=== PATIENT | female | born 1975 | race Native Hawaiian/Other Pacific Islander ===

== ENCOUNTER 2025-08-20 15:48 | Outpatient (AMB) | payer OTHER, SELFPAY ==
--- NOTE | 2025-08-20 15:51 | MHC.PC.OV ---
Vital Signs 08/20/25 15:55 Height 5 ft 2.99 in Weight 177 lb 8 oz BMI 31.4 BP 129/77 Blood Pressure Location Rt brachial Position Sitting Respiration 16 Pulse 101 H Pulse Source Pulse Oximeter Temp 97.9 F Temp Source Oral Pulse Oximetry (%) 98 Oxygen Delivery Method Room Air Intake Visit Reasons: HEALTH AND WELLNESS ADVISOR Low potassium Insole And Heel Stiffener Required: No Accompanied by: Self / Same As Patient Allergies sulfamethoxazole (From Bactrim) Allergy (Mild, Verified 08/20/25 15:57) breathing problem trimethoprim (From Bactrim) Allergy (Mild, Verified 08/20/25 15:57) breathing problem Tobacco use date assessed: 08/20/25 Dental Screening Dental Screen Date: 08/20/25 Did you have a dental visit in the last 12 months?: Yes Did you have a dental problem in the last 6 months where you did not have access to dental care?: No Was dental information given to patient?: Patient has dentist HPI HPI Comments History of Present Illness Details History of Present Illness The patient is a 50-year-old female presenting with concerns about a possible calf muscle spasm, and establish care Sleep apnea: - The patient reports waking up tired and experiencing headaches in the morning, suggesting possible sleep apnea. - A home sleep study has been recommended to evaluate for sleep apnea. Electrolyte imbalance: - The patient experiences cramps and abdominal tenderness, which may be related to an electrolyte imbalance. - Laboratory tests including sodium, potassium, magnesium, and calcium levels have been ordered to investigate the cause. Review of Systems - General: Reports fatigue and waking up tired. Denies smoking and drug use. - Neurological: Reports morning headaches. - Gastrointestinal: Reports abdominal tenderness. - Musculoskeletal: Reports cramps. 10-point ROS reviewed and negative except as noted in HPI Past Medical History - Menopause: Cessation of menstruation reported. Health Maintenance - Sleep study: Home sleep study recommended to evaluate for sleep apnea. - Laboratory tests: Comprehensive metabolic panel, thyroid function tests, and electrolyte levels ordered. Physical Exam General: Well-appearing, in no acute distress. Vital signs: Within normal limits. HEENT: Normocephalic, atraumatic. PERRLA, EOMI. Conjunctiva clear, sclera anicteric. Oropharynx clear, mucous membranes moist. TMs intact bilaterally. Neck: Supple, no lymphadenopathy, no thyromegaly, no JVD or carotid bruits. Cardiovascular: RRR, normal S1/S2, no murmurs, rubs, or gallops. Peripheral pulses 2+ and symmetric. No edema. Respiratory: Lungs clear to auscultation bilaterally, no wheezes, rales, or rhonchi. Normal effort. Abdomen: Soft, tender to palpation. Normoactive bowel sounds. No hepatosplenomegaly, no masses. MSK: Full range of motion, no joint swelling or deformity. Normal gait. Skin: Warm, dry, intact. No rashes, lesions, or pallor. Neuro: Alert and oriented x3. Cranial nerves II-XII intact. Strength 5/5 throughout. Sensation intact. Reflexes 2+ symmetric. Normal coordination and gait. Psych: Appropriate mood and affect. Normal judgment and insight. Plan 1. Sleep Apnea - A home sleep study has been ordered to assess for sleep apnea. 2. Electrolyte Imbalance - Laboratory tests including sodium, potassium, magnesium, and calcium levels have been ordered to investigate the cause of cramps and abdominal tenderness. Discussion Notes During the visit, I discussed the potential for sleep apnea with the patient and recommended a home sleep study to confirm the diagnosis. We also talked about the possibility of an electrolyte imbalance causing her cramps and abdominal tenderness, and I ordered comprehensive laboratory tests to investigate further. The patient was informed about the importance of these tests and the need for follow-up to discuss the results and any necessary interventions. Patient was informed and verbally consented to the use of an ambient scribe for clinic note documentation during this visit. Patient Instructions - Schedule and complete the home sleep study as soon as possible. - Follow up with the clinic in two weeks to review lab results and discuss further management. - Maintain a balanced diet and stay hydrated to help manage potential electrolyte imbalances. Total time spent caring for the patient today was 30 minutes. This includes time spent before the visit reviewing the chart, time spent documenting, and time spent reviewing laboratory results, diagnostic imaging, medications, performing a medically necessary evaluation, counseling on diagnoses, care coordination, ordering appropriate tests. [facility] Family History (Updated 08/20/25 @ 15:59 by Naty Shell MA) Father No problems noted. Mother High blood pressure Diabetes Arthritis Polymyalgia Social History (Updated 08/20/25 @ 15:59 by Naty Shell MA) Housing: House Alcohol intake: current Alcohol intake frequency: holidays/special occasions only Patient Tobacco Use Status: Never used Tobacco service: No Current occupational status: employed Cognitive needs: No Hearing needs: No Vision needs: Yes (rx glasses) Questionnaire PHQ-9 Over the last 2 weeks, how often have you been bothered by any of the following problems? 1. Little interest or pleasure in doing things: not at all 2. Feeling down, depressed, or hopeless: not at all 3. Trouble falling or staying asleep, or sleeping too much: several days 4. Feeling tired or having little energy: several days 5. Poor appetite or overeating: not at all 6. Feeling bad about yourself - or that you are a failure or have let yourself or your family down: not at all 7. Trouble concentrating on things, such as reading the newspaper or watching television: not at all 8. Moving or speaking so slowly that other people could have noticed. Or the opposite - being so fidgety or restless that you have been moving around a lot more than usual: not at all 9. Thoughts that you would be better off or of hurting yourself in some way: not at all Total score: 2 Source: Developed by Drs. Agustin Alvarenga, Dianna Garvin, Hunter Knight and colleagues, with an educational ludy from [facility]. Thrive Questionnaire Date Thrive assessed: 08/20/25 I am a: Patient What is your living situation today?: I have a steady place to live Within the past 12 months, did the food you bought not last and you didn't have the money to get more?: Often true Within the past 12 months, did you worry whether your food would run out before you got money to buy more?: Never true Do you have trouble paying for medicines?: No Do you have trouble getting transportation to medical appointments?: No Do you have trouble paying your heating and electricity bill?: No Do you have trouble taking care of your child, family member or friend?: No Are you currently unemployed and looking for a job?: No Are you interested in more education?: No Please select the resources that you would like help with: None Currently or been in a relationship where the following occur: No concerns reported THRIVE Score: 1 AUDIT C Alcohol Use Questionnaire (AUDIT-C) 1. How often do you have a drink containing alcohol?: Monthly or less 2. How many drinks containing alcohol do you have on a typical day when you are drinking?: 1 or 2 3. How often do you have six or more drinks on one occasion?: Never Total Score: 1 MELVI-7 AMB Questionnaire MELVI-7 Date MELVI - 7 assessed: 08/20/25 Feeling nervous, anxious, or on edge: 0 = Not at all Not being able to stop or control worryin = More than half the days Worrying too much about different things: 2 = More than half the days Trouble relaxin = More than half the days Being so restless that it is hard to sit still: 1 = Several days Becoming easily annoyed or irritable: 0 = Not at all Feeling afraid as if something awful might happen: 0 = Not at all Total MELVI-7 score (0-4 normal; 5-9 mild; 10-14 moderate; 15-21 severe): 7 Source: Developed by Drs. Agustin Alvarenga, Dianna Garvin, Hunter Knight and colleagues, with an educational ludy from [facility]. Physical exam (Primary Care) Vital Signs: Last Vital Signs Resp 16 08/20/25 15:55 BMI result Body Mass Index 31.4 Tobacco/Smoking Status: Tobacco use Status Tobacco use date assessed 08/20/25 08/20/25 15:53 Patient Tobacco Use Status Never used Tobacco 08/20/25 15:59 PHQ-9: PHQ-9 Score PHQ-9: Total score 2 08/20/25 15:53 Thrive Assessment: Date of Thrive Assessment Date Thrive assessed 08/20/25 08/20/25 15:53 Currently or been in a relationship where the following occur: No concerns reported Coding Level of Care Code New Pt Level 4 (36257) Diagnoses Class 1 obesity E66.811 Assessment & Plan Assessment & Plan (1) Class 1 obesity: Code(s): E66.811 - Obesity, class 1 Plan Orders: Orders HIV Ab/Ag Today Z13.9 - Encounter for screening, unspecified Lipid Panel Today Z13.9 - Encounter for screening, unspecified UA CC w/rflx Micro + Cult Today Z13.9 - Encounter for screening, unspecified Chlamydia Species Ab Panel Today Z13.9 - Encounter for screening, unspecified CT NG by PCR Urine Today Z13.9 - Encounter for screening, unspecified Syphilis Screen Today Z13.9 - Encounter for screening, unspecified Complete Blood Count Auto Diff Today Z13.9 - Encounter for screening, unspecified Comprehensive Met. Panel Today Z13.9 - Encounter for screening, unspecified Hemoglobin A1c Today Z13.9 - Encounter for screening, unspecified Hepatitis B Surface Antibody Today Z13.9 - Encounter for screening, unspecified Hepatitis B Surface Antigen Today Z13.9 - Encounter for screening, unspecified Hepatitis C Antibody Today Z13.9 - Encounter for screening, unspecified Magnesium Today Z13.9 - Encounter for screening, unspecified Vitamin B12 and Folate Today Z13.9 - Encounter for screening, unspecified Vitamin D 1,25 dihydroxy Today Z13.9 - Encounter for screening, unspecified TSH reflex Free T4 Today Z13.9 - Encounter for screening, unspecified RT home sleep study Today G47.10 - Hypersomnia, unspecified, R51.9 - Headache, unspecified, R53.83 - Other fatigue Medications: New carbamide peroxide 6.5% (Debrox) 5 drps otic (ears) Q12H 15 mL 0RF 4 days
[2025-08-20 15:55] VITALS: BP 129/77; PULSE 101; RESP 16; TEMP 36.6; O2SAT 98; BMI 31.4
--- OUTSIDE RECORDS SUMMARY | 2025-08-20 18:07 | XMS_ITS | Clinical Summary ---
Author Organization [facility] it Address [address] [place] [address] Care Team Providers Care Senior Financial Accountant Name Role Phone Prabhakar Friend MD Primary Care Provider Un available Surgical History Surgery Date Site/Laterality Comments TUBAL LIGATION PROCEDURE: HISTORICAL TUBAL LIGATION TONSILLECTOMY PROCEDURE: HISTORICAL TONSILLECTOMY ESOPHAGOGASTRODUODENOSCOPY 12/16/2012 PROCEDURE: NC ESOPHAGOGASTRODUODENOSCOPY TRANSORAL DIAGNOSTIC; COMMENT: small HH; no esophagitis on PPI rx. BREAST REDUCTION 11/15/2013 PROCEDURE: NC BREAST REDUCTION; COMMENT: lift BELT ABDOMINOPLASTY 11/15/2015 PROCEDURE: HISTORICAL TUMMY TUCK ESOPHAGOGASTRODUODENOSCOPY 12/01/2022 PROCEDURE: NC EGD TRANSORAL BIOPSY SINGLE/MULTIPLE; COMMENT: normal including biopsy Medical History Medical History Date Comments Lumbago 08/03/2007 DX:Lumbago Acute upper respiratory infe ctions of unspecified site 08/03/2007 DX:Acute upper respiratory infections of unspecified site Epicondylitis, lateral DX:Epicon dylitis, lateral GERD (gastroesophageal reflux disease) DX:GERD (gastroesophageal reflux disease) Gastroparesis 09/01/2023 DX:Gastroparesis Choking DX:Choking Dysphagia DX:Dysphagia Family History Medical History Relation Name Comments Breast cancer Aunt paternal Hyperlipidemia Father Hypertension Father Lymphoma Father Diabetes Grandparent Cataracts Maternal Grandfather Glaucoma Maternal Grandmother Hypertension Mother Stroke Mother Breast cancer Other 1 pat cousin Other: cancer of breast Other 2 patel rnal cousin Other: stomach cancer Paternal Grandfather Throat cancer Uncle 1 Esophageal cancer Uncle 2 Blindness Neg Hx Macular degeneration Neg Hx Strabismus Neg Hx Relation Name Status Comments Aunt paternal Alive Father Grandparent Maternal Grandfather Maternal Grandmother Mother Other 1 pat cousin Alive Other 2 Paternal Grandfather Uncle 1 Uncle 2 Alive Social History Tobacco Use Types Packs/Day Years Used Date Smoking Tobacco: Former Cigarettes Q uit: 11/15/2010 Smokeless Tobacco: Never Alcohol Use Standard Drinks/Week Comments Yes 0 (1 standard drink = 0.6 oz pur e alcohol) Comments Unknown Sex and Gender Information Value Date Recorded Sex Assigned at Not on file Legal Sex Female 9:25 AM EST Gender Identity Not on file Sexual Orientation Not on file Obstetrics History Last Filed Vital Signs Vital Sign Reading Time Taken Comments Blood Pressure 140/90 12/13/2023 9:27 AM EST Pulse 80 12/13/2023 9:27 AM EST Temperature - - Respiratory Rate - - Oxygen Saturation - - Inhaled Oxygen Concentration - - Weight 79.6 kg (175 lb 8 oz) 12/13/2023 9:27 AM EST Height 154.9 cm (5' 1 ) 12/13/2023 9:27 AM EST Body Mass Index 33.16 12/13/2023 9:27 AM EST Plan of Treatment Health Maintenance Due Date Last Done Comments Colorectal Cancer Screening: Colonoscopy 1973 Hepatitis B Vaccines (1 of 3 - 19+ 3-dose series) 01/23/1992 Cholesterol Screening (Lipid Panel) 10/24/2022 HIV Screening 10/24/2022 Hepatitis C Screening 10/24/2022 Lung Cancer Screening (Low Dose CT) 10/24/2022 Social Influencers of Health Screening 10/24/2022 Pneumococcal Vaccine: 50+ Years (1 of 1 - PCV) 2023 Zoster Vaccines (1 of 2) 2023 Depression Screening 11/15/2024 COVID-19 Vaccine (3 - 2024- season) 2025 02/27/2021, 02/06/2021 Influenza Vaccine (#1) 2025 Breast Cancer Screening 08/04/2025 08/04/20, 07/28/2022, 02/07/2019, Additional history exists Cervical Cancer Screening: HPV 08/22/2029 08/22/2024 DTaP,Tdap,and Td Vaccines (4 - Td or Tdap) 09/01/2033 09/01/2023, 07/06/2012, 07/01/2006 RSV Immunization Adult Patients (1 - 1-dose 75+ series) 01/23/2048 HIB Vaccines Aged Out No longer eligi ble based on patient's age to complete this topic HPV Vaccines Aged Out No longer eligi ble based on patient's age to complete this topic Hepatitis A Vaccines Aged Out No long er eligible based on patient's age to complete this topic IPV Vaccines Aged Out No longer eligi ble based on patient's age to complete this topic MMR Vaccines Aged Out No longer eligi ble based on patient's age to complete this topic Meningococcal ACWY Vaccine Aged Out N o longer eligible based on patient's age to complete this topic Meningococcal B Vaccine Aged Out No l onger eligible based on patient's age to complete this topic RSV Immunization Patients Under 20 months Aged Out No longer eligible based on patient's age to complete this topic Varicella Vaccines Aged Out No longer eligible based on patient's age to complete this topic Procedures Procedure Name Priority Date/Time Associated Diagnosis Comments SCREENING MAMMOGRAPHY BI 2-VIEW BREAST INC CAD Routine 08/04/2023 7:44 AM EDT Encounter for screening mammogram for malignant neoplasm of breast from Last 3 Months or Most Recently Relevant to Health Maintenance Results * SCREENING MAMMOGRAPHY BI 2-VIEW BREAST INC CAD (08/04/2023 7:44 AM EDT) Anatomical Region Laterality Modality Radiographic Sydnie ging 07/28/2022 8:26 AM EDT Narrative 08/04/2023 11:35 AM EDT This is a summary report. The complete report is available in the patient's medical record. If you cannot access the medical record, please contact the sending organization for a detailed fax or copy. Full field digital screening tomosynthesis mammography, reviewed with CAD and compared to previous. The breasts are composed of fatty and fibroglandular tissue. There is sequela of bilateral breast reduction mammoplasty. No suspicious mass, architectural distortion or suspicious calcifications are identified. IMPRESSION: : No mammographic evidence of malignancy. BI-RADS 2, benign findings.. 5 year breast cancer risk assessment N/A Lifetime breast cancer risk assessment N/A Breast cancer risk category Breast cancer risk not assessed Procedure Note Sabina Moffett MD - 12/21/2023 This is a summary report. The complete report is available in thepatient's medical record. If you cannot access the medical record, pleasecontact the sending organization for a detailed fax or copy. Full field digital screening tomosynthesis mammography, reviewed with CADani compared to previous. The breasts are composed of fatty andfibroglandular tissue. There is sequela of bilateral breast reductionmammoplasty. No suspicious mass, architectural distortion or suspiciouscalcifications are identified. IMPRESSION: : No mammographic evidence of malignancy. BI-RADS 2, benign findings.. 5 year breast cancer risk assessment N/A Lifetime breast cancer risk assessment N/A Breast cancer risk category Breast cancer risk not assessed us Prabhakar Friend MD IMG XR PROCEDURES Final R esult from Last 3 Months or Most Recently Relevant to Health Maintenance Care Teams Senior Financial Accountant Relationship Specialty Start Date End Date Prabhakar Friend MD PCP - General Internal Medicine 01/29/22
--- OUTSIDE RECORDS SUMMARY | 2025-08-20 18:07 | XMS_ITS | Clinical Summary ---
Author Organization [facility] Address [address] [place] [address] Phone Care Team Providers Care Bowling Pin Setters Installer Name Role Phone Pcp, Unknown Primary Care Provider Unavailabl e Allergies Active Allergy Reactions Criticality Noted Date Comments Sulfamethoxazole-Trimethoprim Anaphylaxis High 01/30 Medications oxyCODONE 5 MG immediate release tablet Take 1 tablet (5 mg total) by mouth every 4 (four) hours as needed. Can partial fill 12 tablet 05/22/2024 Active Social History Tobacco Use Types Packs/Day Years Used Date Smoking Tobacco: Never Assessed Education Answer Date Recorded Are you interested in more education? Not on devon e 05/23/2024 Are you concerned about learning? Not on file 05/23/2024 No 05/23/2024 No 05/23/2024 Digital Access Answer Date Recorded No 05/23/2024 No 05/23/2024 Reliable internet access at home? Not on file 05/23/2024 Device with a working camera? Not on file Intimate Partner Violence Answer Date R ecorded Are you denied basic needs s uch as food, clothing, or medical care? No 05/22/2024 In the past 12 months have y ou been in a relationship with a person who hurts, threatens, or tries to control you? No 05/22/2024 Are you denied basic needs s uch as food, clothing, or medical care? No 05/22/2024 In the past 12 months have y ou been in a relationship with a person who hurts, threatens, or tries to control you? No 05/22/2024 Comments Unknown Sex and Gender Information Value Date Recorded Sex Assigned at Female 05/22/2024 6:36 PM EDT Legal Sex Female 6:29 PM EDT Gender Identity Female 05/22/2024 6:36 PM EDT Sexual Orientation Straight 05/22/2024 6: 36 PM EDT Last Filed Vital Signs Vital Sign Reading Time Taken Comments Blood Pressure 126/73 05/22/2024 9:00 PM EDT Pulse 87 05/22/2024 9:00 PM EDT Temperature 36.3 C (97.3 F) 05/22/2024 9:00 PM EDT Respiratory Rate 16 05/22/2024 9:00 PM EDT Oxygen Saturation 99% 05/22/2024 9:00 PM EDT Inhaled Oxygen Concentration - - Weight 74.8 kg (165 lb) 05/22/2024 7:27 PM EDT Height 157.5 cm (5' 2 ) 05/22/2024 7:27 PM EDT Body Mass Index 30.18 05/22/2024 7:27 PM EDT Plan of Treatment Health Maintenance Due Date Last Done Comments Adult Td,Tdap Booster 1973 DEPRESSION SCREENING 1985 SMOKING Hx and SMOKELESS TOB ACCO SCREENING 1986 HEPATITIS C SCREENING 1991 HIV ONE-TIME SCREENING (18-6 5 YEARS) 1991 PAP SMEAR 1994 SCREENING FOR DIABETES 01/23/2008 MAMMOGRAM 2013 COLOGUARD 2018 COLONOSCOPY 2018 FIT TEST 2018 SIGMOIDOSCOPY 2018 VIRTUAL COLONOSCOPY 2018 PNEUMOCOCCAL VACCINES (50+ y ears) (1 of 1 - PCV) 2023 ZOSTER VACCINES (1 of 2) 2023 COLORECTAL CANCER SCREENING 01/31/2025 FOBT 01/31/2025 02/01/2024 INFLUENZA VACCINE (#1) 2025 COVID-19 VACCINE (1 - 2024-2 6 season) 2025 LIPID PANEL 01/31/2029 02/01/2024 RSV VACCINE (1 - 1-dose 75+ series) 01/23/2048 HEPATITIS A VACCINES Aged Out No long er eligible based on patient's age to complete this topic HIB VACCINES Aged Out No longer eligi ble based on patient's age to complete this topic MENINGOCOCCAL VACCINES (ACWY) Aged Out No longer eligible based on patient's age to complete this topic MENINGOCOCCAL VACCINES (B) Aged Out N o longer eligible based on patient's age to complete this topic Medical Devices Not on file Insurance [place] Member Subscriber Plan / Payer (Ef fective 2024-Present) Name:Hartley HebertApril Relation to Subscriber:Self Name:April Jean Payer ID:Not on file Group ID:Not on file Type:Medicaid Address: [address] [address] MEDICAID [facility] MEDICAID NON [place] Care Teams Bowling Pin Setters Installer Relationship Specialty Start Date End Date Pcp, Unknown PCP - General 05/22/24 Additional Source Comments The information contained in this document represents components of the legal health record. It is not the complete legal health record.[facility]
== END 2025-08-20 16:31 | disposition home or self-care (01) ==
LOC: HO.HMCFMS 15:49
PROVIDERS: PCP Student in an Organized Health Care Education/Training Program; Visit Provider Student in an Organized Health Care Education/Training Program
DX: E66.811 Obesity, class 1 (principal)

== ENCOUNTER 2025-08-21 11:38 | Outpatient (REF) | payer OTHER, SELFPAY ==
[2025-08-21 12:13] LABS: MANUAL DIFF FLAG NO
[2025-08-21 12:27] LABS: Hematocrit 46.6 % (37.0-47.0); Hemoglobin 15.8 g/dl (12.0-16.0); Imm Gran Abs Auto 0.02 X10*3/uL (0.00-0.03); Imm Gran Pct Auto 0.3 % (0.0-0.4); Lymphocytes Absolute Auto 2.3 X10*3/uL (1.2-4.9); Mean Corpuscular HGB Conc 33.9 g/dl (31.0-35.0); Mean Corpuscular Hemoglobin 29.1 pg (27.0-33.0); Mean Corpuscular Volume 85.8 fL (80.0-98.0); NRBC Abs Auto 0.000 X10*3/uL (0.0-0.012); NRBC Pct Auto 0.0 /100WBC (0.0-0.2); Platelet Count 328 X10*3/uL (160-400); Red Blood Count 5.43 X10*6/uL (4.20-5.50); White Blood Count 6.7 X10*3/uL (4.8-10.8)
[2025-08-21 13:01] LABS: Alanine Aminotransferase 35 U/L (0-31); Albumin Level 4.7 g/dL (3.5-5.0); Alkaline Phosphatase 115 U/L (39-117); Anion Gap 13 (12-20); Aspartate Amino Transferase 28 U/L (5-31); Blood Urea Nitrogen 13 mg/dL (9-16); Calcium 9.4 mg/dL (8.4-10.2); Carbon Dioxide 27 mmol/L (22-29); Chloride 104 mmol/L (96-108); Cholesterol 255 mg/dL (<200); Estimated Glomerular Filt Rate > 60; HDL Cholesterol 47 mg/dL (>40); Magnesium 2.3 mg/dL (1.6-2.6); Potassium 3.7 mmol/L (3.3-5.1); Sodium 140 mmol/L (135-145); Total Protein 8.6 g/dL (6.5-8.0); Triglycerides 337 mg/dL (<150)
[2025-08-21 13:13] LABS: HBS Num1 0.00 mIU/mL (0-7.99); HBsAGNum1 0.42 S/CO (0.00-0.99); HIV Num 1 0.06 S/CO (0.00-0.99); Hepatitis B Surface Antigen Negative (Negative); Syphilis Screen Nonreactive (Nonreactive); ~HepC Num1 0.17 S/CO (0.00-0.79); ~Hepatitis B Surface Antibody NONREACTIVE (Nonreactive); ~Hepatitis C Antibody Nonreactive (Nonreactive)
[2025-08-21 13:30] LABS: Folate 10.0 ng/mL (> or = 4.0)
[2025-08-21 13:37] LABS: Vitamin B12 317 pg/mL (200-900)
[2025-08-21 14:15] LABS: Appearance Urine Clear; Glucose Urine UA Negative (Negative); PH 7.5 (5.0-9.0); Specific Gravity - Urine 1.020 (1.005-1.025); UMIC TRIGGER UACC YES
--- OUTSIDE RECORDS SUMMARY | 2025-08-21 14:45 | XMS_ITS | Clinical Summary ---
Author Organization [facility] Address [address] [place] [address] Phone Care Team Providers Care Chlorinator Operator Name Role Phone Pcp, Unknown Primary Care [...] Devices Not on file [place] [facility] MEDICAID NON [place] Care Teams Chlorinator Operator Relationship Specialty Start Date End Date Pcp, Unknown PCP - General 05/22/24 Additional Source Comments The information contained in this document represents components of the legal health record. It is not the complete legal health record.[facility]
--- OUTSIDE RECORDS SUMMARY | 2025-08-21 14:45 | XMS_ITS | Clinical Summary ---
Author Organization [facility] it Address [address] [place] [address] Care Team Providers Care Machinist First Class Name Role Phone Prabhakar Friend MD Primary Care Provider Un available Surgical History Surgery Date Site/Laterality Comments TUBAL LIGATION PROCEDURE: HISTORICAL TUBAL LIGATION TONSILLECTOMY PROCEDURE: HISTORICAL TONSILLECTOMY ESOPHAGOGASTRODUODENOSCOPY 12/16/2012 PROCEDURE: DE ESOPHAGOGASTRODUODENOSCOPY TRANSORAL DIAGNOSTIC; COMMENT: small HH; no esophagitis on PPI rx. BREAST REDUCTION 11/15/2013 PROCEDURE: DE BREAST REDUCTION; COMMENT: lift BELT ABDOMINOPLASTY 11/15/2015 PROCEDURE: HISTORICAL TUMMY TUCK ESOPHAGOGASTRODUODENOSCOPY 12/01/2022 PROCEDURE: DE EGD TRANSORAL BIOPSY SINGLE/MULTIPLE; COMMENT: normal including [...] Recently Relevant to Health Maintenance Care Teams Machinist First Class Relationship Specialty Start Date End Date Prabhakar Friend MD PCP - General Internal Medicine 01/29/22
[2025-08-21 14:51] LABS: UACC Culture Trigger YES
[2025-08-21 16:11] LABS: CT PCR Urine NOT DETECTED (Not Detect.); NG PCR Urine NOT DETECTED (Not Detect.)
[2025-08-26 14:08] LABS: VITAMIN D (1,25 OH) D3 55 pg/mL; Vit D (1,25-Dihydroxy) Total 55 pg/mL (18-72); Vitamin D (1,25 OH) D2 <8 pg/mL
[2025-08-26 17:30] LABS: Chlamydia Trachomatis IgA <1:16 titer (<1:16)
== END 2025-08-21 11:39 | disposition home or self-care (01) ==
LOC: HO.LAB 11:38
PROVIDERS: Visit Provider Student in an Organized Health Care Education/Training Program
DX: Z13.9 Encounter for screening, unspecified (principal); Z01.84 Encounter for antibody response examination; Z13.29 Encounter for screening for other suspected endocrine disorder; Z13.1 Encounter for screening for diabetes mellitus
CPT/HCPCS: 80053; 80061; 81001; 82607; 82652; 82746; 83036; 83735; 84443; 85025; 86631; 86632; 86706; 86780; 86803; 87086; 87340; 87389; 87491; 87591

== ENCOUNTER 2025-09-03 15:58 | Outpatient (AMB) | payer OTHER, SELFPAY ==
--- NOTE | 2025-09-03 16:13 | MHC.PC.OV ---
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 Required: No Accompanied by: Self / Same As Patient Allergies sulfamethoxazole (From Bactrim) Allergy (Mild, Verified 08/20/25 15:57) breathing problem trimethoprim (From Bactrim) Allergy (Mild, Verified 08/20/25 15:57) breathing problem Tobacco use date assessed: 09/03/25 Dental Screening Dental Screen Date: 09/03/25 Did you have a dental visit in the last 12 months?: Yes Did you have a dental problem in the last 6 months where you did not have access to dental care?: No Was dental information given to patient?: Patient has dentist HPI HPI Comments History of Present Illness Details Consent Patient was informed and verbally consented to the use of an ambient scribe for clinic note documentation during this visi History of Present Illness The patient is a 50-year-old female presenting with follow-up for prediabetes, hyperlipidemia, and elevated liver enzymes, and management of pain issues. Prediabetes: The patient has been noted to have prediabetes, with a recorded A1c of 6.0 from recent labs indicating glucose intolerance. No symptoms or complications were reported by the patient during this follow-up. Hyperlipidemia: The patient reports elevated lipid levels with triglycerides of 337 mg/dL, cholesterol of 255 mg/dL, and LDL 141 mg/dL. She denies any significant changes in diet but mentions a familial tendency for elevated lipid levels. There were no immediate complications discussed. Elevated ALT: Mild elevation in ALT was identified at 35 U/L. There was no direct cause identified or discussed for this mild elevation during the visit. Tendinitis: The patient experiences tendinitis-related pain and refrains from using daily medication. She expresses a preference for lifestyle modifications and non-medicinal treatments for her condition. 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 Alternative therapies were discussed during the visit. 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 - On her feet for extended periods due to job function, leading to consideration of compression stockings - Reports a varied diet with a formal mention of cheese consumption Family History: - Potential familial hyperlipidemia suggested Diagnostic Results: - Labs: A1c is 6.0 (prediabetes), elevated triglycerides at 337 mg/dL, cholesterol at 255 mg/dL, and LDL at 141 mg/dL - Labs: ALT mildly elevated at 35 U/L - Labs: HDL, vitamin B12, vitamin D, folate within normal limits - Labs: Sodium, potassium, renal function, white blood cells, red blood cells, hemoglobin, hematocrit, platelets within normal limits - Tests: Negative for syphilis, HIV, hepatitis B and C Review of Systems - Musculoskeletal: Reports tendinitis pain - Neurological: Reports neuropathic pain; denies feeling comfortable using gabapentin during work hours. Reports previous use of gabapentin. 10-point ROS reviewed and negative except as noted in HPI Past Medical History - History of persistent tendinitis - Previous neuropathic pain management with gabapentin Health Maintenance - Recommendation to see a registered respiratory therapist for dietary guidance related to lipid control - Discussed fish oil introduction and benefits Physical Exam General: Well-appearing, in no acute distress. Vital signs: Within normal limits. HEENT: Normocephalic, atraumatic. PERRLA, EOMI. Conjunctiva clear, sclera anicteric. Oropharynx clear, mucous membranes moist. TMs intact bilaterally. Neck: Supple, no lymphadenopathy, no thyromegaly, no JVD or carotid bruits. Cardiovascular: RRR, normal S1/S2, no murmurs, rubs, or gallops. Peripheral pulses 2+ and symmetric. No edema. Respiratory: Lungs clear to auscultation bilaterally, no wheezes, rales, or rhonchi. Normal effort. Abdomen: Soft, non-tender, non-distended. Normoactive bowel sounds. No hepatosplenomegaly, no masses. MSK: Full range of motion, no joint swelling or deformity. Normal gait. Skin: Warm, dry, intact. No rashes, lesions, or pallor. Neuro: Alert and oriented x3. Cranial nerves II-XII intact. Strength 5/5 throughout. Sensation intact. Reflexes 2+ symmetric. Normal coordination and gait. Psych: Appropriate mood and affect. Normal judgment and insight. Plan 1. Prediabetes - Recommend lifestyle modifications and dietary changes, reducing carbohydrates and sweets. - Referral to a registered respiratory therapist for personalized planning. 2. Hyperlipidemia - Prescription of atorvastatin 10 mg to reduce LDL and overall cholesterol levels. - Addition of Rose-3 fish oil, 2 g in the morning and 2 g at night, to assist in lowering triglyceride levels. - Recommend follow-up in 3-6 months with lipid panel repeat. 3. Elevated Alt - No active intervention but to monitor LFTs in subsequent visits. 4. Tendinitis - Discussion of potential use of capsaicin topical cream for pain management. 5. Neuropathic Pain - Trial of alternative medications such as amtriptyline or duloxetine for pain management, considering their lower sedative profile compared to gabapentin. Discussion Notes I reviewed the patient's current health issues which include prediabetes, hyperlipidemia, and an elevated ALT level. We discussed lifestyle and dietary changes, specifically focusing on carbohydrate and sugar reduction to manage prediabetes. For hyperlipidemia, I detailed the option of starting on atorvastatin and omega-3 fish oil, explaining the benefits and necessity of reducing triglyceride and cholesterol levels. We also talked about following up on these labs in 3-6 months. For pain management linked to tendinitis and neuropathic pain, the alternatives such as capsaicin cream and medications like amitriptyline and duloxetine were discussed as preferable to gabapentin due to its sedative effects. A referral to a registered respiratory therapist was offered for personalized dietary management, and I provided instructions on seeking a home sleep study. Patient Instructions - Reduce carbohydrate and sugar intake; focus on a healthy diet - Consider consultation with a pipe roller - Take atorvastatin and omega-3 fish oil as prescribed for lipid management - Use acetaminophen or capsaicin cream for pain management - Schedule a follow-up visit in 3-6 months to reassess lab results - Follow up on scheduling a home sleep study Medical Decision Making The patient presented a complex profile with multiple interrelated issues. The focus was on managing her prediabetes and hyperlipidemia while ensuring that her liver enzymes are monitored for safety. The management of her pain was crucial, and alternative medications were considered to avoid the sedative effects of previous treatments. The decision to introduce a statin and omega-3 oils was based on the need for aggressive lowering of her lipid levels to prevent future cardiovascular risk. Education on lifestyle and dietary changes was emphasized for the management of her risk factors related to both metabolic syndrome components and to minimize any potential liver damage. Regular monitoring and reassessment were deemed necessary due to the chronic nature of her health issues. Total time spent caring for the patient today was 30 minutes. This includes time spent before the visit reviewing the chart, time spent documenting, and time spent reviewing laboratory results, diagnostic imaging, medications, performing a medically necessary evaluation, counseling on diagnoses, care coordination, ordering appropriate tests, ordering appropriate medications. [facility] Family History Father No problems noted. Mother High blood pressure Diabetes Arthritis Polymyalgia Social History Housing: House Alcohol intake: current Alcohol intake frequency: holidays/special occasions only Patient Tobacco Use Status: Never used Tobacco service: No Current occupational status: employed Cognitive needs: No Hearing needs: No Vision needs: Yes (rx glasses) Questionnaire Thrive Questionnaire Date Thrive assessed: 08/20/25 I am a: Patient What is your living situation today?: I have a steady place to live Within the past 12 months, did the food you bought not last and you didn't have the money to get more?: Often true Within the past 12 months, did you worry whether your food would run out before you got money to buy more?: Never true Do you have trouble paying for medicines?: No Do you have trouble getting transportation to medical appointments?: No Do you have trouble paying your heating and electricity bill?: No Do you have trouble taking care of your child, family member or friend?: No Are you currently unemployed and looking for a job?: No Are you interested in more education?: No Please select the resources that you would like help with: None Currently or been in a relationship where the following occur: No concerns reported THRIVE Score: 1 MELVI-7 AMB Questionnaire MELVI-7 Date MELVI - 7 assessed: 08/20/25 Source: Developed by Drs. Agustin Alvarenga, Dianna Garvin, Hunter Knight and colleagues, with an educational ludy from [employer]. Physical exam (Primary Care) Vital Signs: Last Vital Signs Temp 97.7 F 09/03/25 16:14 Pulse 87 09/03/25 16:14 Resp 16 09/03/25 16:14 BP 139/86 09/03/25 16:14 Pulse Ox 99 09/03/25 16:14 Oxygen Delivery Method Room Air 09/03/25 16:14 BMI result Body Mass Index 31.6 Tobacco/Smoking Status: Tobacco use Status Tobacco use date assessed 09/03/25 09/03/25 16:16 Patient Tobacco Use Status Never used Tobacco 09/03/25 16:14 Thrive Assessment: Date of Thrive Assessment Date Thrive assessed 08/20/25 09/03/25 16:14 Currently or been in a relationship where the following occur: No concerns reported Coding Level of Care Code Est Pt Level 4 (65977) Diagnoses Prediabetes R73.03 Hyperlipidemia E78.5 Elevated ALT measurement R74.01 Tendonitis M77.9 Neuropathic pain M79.2 GERD (gastroesophageal reflux disease) K21.9 Assessment & Plan Assessment & Plan (1) Prediabetes: Code(s): R73.03 - Prediabetes (2) Hyperlipidemia: Code(s): E78.5 - Hyperlipidemia, unspecified (3) Elevated ALT measurement: Code(s): R74.01 - Elevation of levels of liver transaminase levels (4) Tendonitis: Code(s): M77.9 - Enthesopathy, unspecified (5) Neuropathic pain: Code(s): M79.2 - Neuralgia and neuritis, unspecified (6) GERD (gastroesophageal reflux disease): Code(s): K21.9 - Gastro-esophageal reflux disease without esophagitis Plan Medications: New rosuvastatin 10 mg PO DAILY 90 tabs 0RF acetaminophen ER 650 mg PO Q12H 90 tabs 0RF capsaicin 0.035% do not wash area for at least 30 min after application 1 appl topical BID 100 grams 0RF icosapent ethyl 2 grams (2 x 1 gram) PO BID 360 caps 0RF omeprazole 10 mg PO DAILY 90 caps 0RF
[2025-09-03 16:14] VITALS: BP 139/86; PULSE 87; RESP 16; TEMP 36.5; O2SAT 99; BMI 31.6
--- OUTSIDE RECORDS SUMMARY | 2025-09-03 20:16 | XMS_ITS | Clinical Summary ---
Author Organization [facility] Address [address] [place] [address] Phone Care Team Providers Care Flight Data Technician Name Role Phone Pcp, Unknown Primary Care [...] Devices Not on file Insurance [place] [employer] [place] Care Teams Flight Data Technician Relationship Specialty Start Date End Date Pcp, Unknown PCP - General 05/22/24 Additional Source Comments The information contained in this document represents components of the legal health record. It is not the complete legal health record.[facility]
== END 2025-09-03 16:46 | disposition home or self-care (01) ==
LOC: HO.HMCFMS 15:59
PROVIDERS: Visit Provider Student in an Organized Health Care Education/Training Program
DX: R73.03 Prediabetes (principal); E78.5 Hyperlipidemia, unspecified; R74.01 Elevation of levels of liver transaminase levels; M77.9 Enthesopathy, unspecified; M79.2 Neuralgia and neuritis, unspecified; K21.9 Gastro-esophageal reflux disease without esophagitis

== ENCOUNTER 2025-10-19 09:31 | Outpatient (AMB) | payer OTHER, SELFPAY ==
--- NOTE | 2025-10-19 09:32 | MHC.OFFVIS ---
Vital Signs 10/19/25 09:35 Height 5 ft 2 in Weight 165 lb BMI 30.2 Intake Visit Reasons: New Pt - B/L elbow pain Intake Note: April is a 50 year old -right hand dominant female who presents today as a new patient for a evaluation of her bilateral elbow pain. Patient reports ongoing pain for about - . She notices that her pain is worse on the - elbow. Patient finds it difficult to - . ? Injury ? previous treatments? 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 Thompson is a 50-year-old right-hand dominant female who presents to the office today for bilateral elbow pain. She denies any injury or trauma to the elbows. Patient reports that she was seen by a walk-in clinic in [place] this past July in which she received bilateral elbow cortisone injections. Ever since receiving the injections she has noticed a decrease in pain and inflammation. She also uses compression elbow sleeves as needed. 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 [facility] Family History Father No problems noted. Mother High blood pressure Diabetes Arthritis Polymyalgia Social History Housing: House Alcohol intake: current Alcohol intake frequency: holidays/special occasions only Patient Tobacco Use Status: Never used Tobacco service: No Current occupational status: employed Cognitive needs: No Hearing needs: No Vision needs: Yes (rx glasses) Review of Systems Const All systems reviewed & are unremarkable except as noted in HPI and below Physical Exam Vital Signs: BMI result Body Mass Index 30.2 Const General: cooperative, healthy appearing and no acute distress Resp Effort & Inspection: normal respiratory effort and able to speak in complete sentences Extrem Other: Right/Left elbow: Normal to inspection. No ecchymosis, erythema, or edema. No tenderness to palpation over the olecranon. tenderness to palpation lateral epicondyle bilaterally. NVI. Psych Appearance: grossly normal Mental Status: mental status grossly normal Attitude: cooperative Assessment & Plan Assessment & Plan (1) Bilateral tennis elbow: Code(s): M77.11 - Lateral epicondylitis, right elbow; M77.12 - Lateral epicondylitis, left elbow Category: Medical Plan Ms. Thompson is a 50-year-old right-hand dominant female who presents to the office today for bilateral elbow pain. She denies any injury or trauma to the elbows. Patient reports that she was seen by a walk-in clinic in [place] this past July in which she received bilateral elbow cortisone injections. Ever since receiving the injections she has noticed a decrease in pain and inflammation. She also uses compression elbow sleeves as needed. 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 However, patient reports that since her last injections she has had a reduction in pain. I have recommended diclofenac in which I will sent to the pharmacy for the patient to be taken 75 mg p.o. b.i.d. as needed for pain and inflammation. She will continue using her elbow sleeves as needed. Reviewed patient history including no GI ulcer/bleed, CKD, CHF, CAD, liver disease, bleeding disorders, or NSAID allergy. Current medications reviewed with no interactions or duplicate NSAID use. Discussed orthopedic considerations, including short-term use being appropriate for soft-tissue pain and potential effects on fracture healing if applicable. Reviewed risks: GI irritation/bleeding, renal impairment, cardiovascular risk, and avoiding multiple NSAIDs. Instructed patient to take with food, avoid alcohol, and monitor for red-flag symptoms (black stools, hematemesis, severe abdominal pain, decreased urination, chest pain, SOB, worsening pain). Patient verbalized understanding. She will follow up with Orthopedics p.r.n., sooner if needed. Medications: New diclofenac sodium 75 mg PO BID PRN 60 tabs 0RF pain Coding Level of Care Code New Pt Level 3 (09812) Complex visit Add On G2211 Diagnoses Bilateral tennis elbow M77.11; M77.12
[2025-10-19 09:35] VITALS: BMI 30.2
--- OUTSIDE RECORDS SUMMARY | 2025-10-19 10:29 | XMS_ITS | Clinical Summary ---
Author Organization [facility] it Address [address] [place] [address] Care Team Providers Care Global Sales Director Name Role Phone Prabhakar Friend MD Primary Care Provider [phone] Surgical History Surgery Date Site/Laterality Comments TUBAL LIGATION PROCEDURE: HISTORICAL TUBAL LIGATION TONSILLECTOMY PROCEDURE: HISTORICAL TONSILLECTOMY ESOPHAGOGASTRODUODENOSCOPY 12/16/2012 PROCEDURE: MA ESOPHAGOGASTRODUODENOSCOPY TRANSORAL DIAGNOSTIC; COMMENT: small HH; no esophagitis on PPI rx. BREAST REDUCTION 11/15/2013 PROCEDURE: MA BREAST REDUCTION; COMMENT: lift BELT ABDOMINOPLASTY 11/15/2015 PROCEDURE: HISTORICAL TUMMY TUCK ESOPHAGOGASTRODUODENOSCOPY 12/01/2022 PROCEDURE: MA EGD TRANSORAL BIOPSY SINGLE/MULTIPLE; COMMENT: normal including [...] Years Used Date Smoking Tobacco: Former Cigarettes 1 Q uit: 11/15/2010 Smokeless Tobacco: Never Alcohol [...] HIV Screening 10/24/2022 Hepatitis C Screening 10/24/2022 Social Influencers of Health Screening 10/24/2022 [...] field digital screening tomosynthesis mammography, reviewed with CADand compared to previous. The breasts are composed [...] Recently Relevant to Health Maintenance Care Teams Global Sales Director Relationship Specialty Start Date End Date Prabhakar Friend MD PCP - General Internal Medicine 01/29/22
--- OUTSIDE RECORDS SUMMARY | 2025-10-19 10:29 | XMS_ITS | Clinical Summary ---
Author Organization [facility] Address [address] [place] [address] Phone Care Team Providers Care Vegetable Vendor Name Role Phone Pcp, Unknown Primary Care [...] Devices Not on file Insurance [place] MED[place] [facility] [place]ICAID [place] Care Teams Vegetable Vendor Relationship Specialty Start Date End Date Pcp, Unknown PCP - General 05/22/24 Additional Source Comments The information contained in this document represents components of the legal health record. It is not the complete legal health record.[facility]
== END 2025-10-19 10:05 | disposition home or self-care (01) ==
PROVIDERS: Visit Provider Physician Assistant
DX: M77.11 Lateral epicondylitis, right elbow (principal); M77.12 Lateral epicondylitis, left elbow
CPT/HCPCS: 99203